=== PATIENT | female | born 1955 | race Caucasian/White ===

== ENCOUNTER 2019-12-29 08:41 | Outpatient (CLI) | payer BC ==
--- NOTE | 2019-12-29 09:36 | CT ---
CT abdomen and pelvis noncontrast HISTORY: Right flank pain. COMPARISON: 12/31/2012. FINDINGS: Lung bases are clear. At the inferior pole of the right kidney is a punctate calcification. Right renal collecting system and ureter are decompressed. Urinary bladder is unremarkable. A small phlebolith is noted within the right lower pelvis outside of the course of the distal right ure ter. Left renal collecting system and ureter are also decompressed. Within a nondilated calyx at the midpo rtion of the left kidney is an oval 0.6 cm calcification. Tiny calcifications, no greater than 0.2 cm, are also present at the superior and inferior poles. Prominent degenerative changes lower lumbar spine including severe left foraminal stenosis at the lum bosacral junction and significant central canal stenosis at the L4-5 level. Lack of contrast limits evaluation of the soft tissues. No evidence of bowel obstruction or inflammat ion. At the inferior pole of the right kidney, a focal exophytic projection inferiorly correlates with a lobulation demonstrated on prior study from 12/31/2012. IMPRESSION : Bilateral ureteral calculi, measuring up to 0.6 cm on the left. No evidence of urinary tract obstruct ion. Perhaps a recently passed stone on the right would account for right flank pain? Degenerative changes lumbar spine including severe left foraminal stenosis at the lumbosacral junctio n. Clinical correlation regarding the left L5 dermatome is required. Other incidental-type findings as detailed above.
== END 2019-12-29 08:42 | disposition home or self-care (01) ==
LOC: CT 08:41
PROVIDERS: ATTEND Obstetrics & Gynecology
DX: R10.9 Unspecified abdominal pain (principal); N20.1 Calculus of ureter; M47.816 Spondylosis without myelopathy or radiculopathy, lumbar region; M48.07 Spinal stenosis, lumbosacral region; N28.89 Other specified disorders of kidney and ureter
CPT/HCPCS: 74176

== ENCOUNTER 2020-06-22 21:49 | Observation (INO) | payer BC ==
[2020-06-22] MEDS ORDERED: Ketorolac Tromethamine 30 MG/ML VIAL ONE (22:32)
[2020-06-22] MEDS ORDERED: Ondansetron PF 4 MG/2 ML Vial ONE (22:32)
[2020-06-22 22:43] LABS: #Eosinphils 0.2 thou/uL (0.0-0.7); #Monocytes 0.5 thou/uL (0.11-0.59); %Basophils 0.4 % (0.0-1.0); %Eosinophils 2.7 % (0.0-10.0); %Lymphocytes 29.9 % (21.0-51.0); %Monocytes 7.6 % (0.0-10.0); %Neutrophils 59.6 % (42.0-75.0); Hemoglobin 13.1 g/dL (12.0-16.0); Mean Corpuscular HGB CONC 33.4 g/dL (32.0-36.0); Mean Corpuscular Hemoglobin 29.8 pg (27.0-31.0); Mean Corpuscular Volume 89.3 fL (78.0-98.0); Mean Platelet Volume 8.2 fL (7.4-10.4); Platelet Count 222 thou/uL (130-400); RBC Distribution Width 11.2 % (11.5-14.5); Red Blood Cell (RBC) Count 4.38 mill/uL (4.20-5.40); White Blood Cell (WBC) Count 6.7 thou/uL (4.8-10.8)
[2020-06-22 23:06] LABS: ALT (SGPT) 14 U/L (8-55); AST (SGOT) 21 U/L (5-34); Albumin 4.2 g/dL (3.4-4.8); Alkaline Phosphatase 71 U/L (40-110); Anion Gap 13 mmol/L (10-20); BUN (Urea Nitrogen) 23 mg/dL (9.8-20.1); Bilirubin, Total 0.2 mg/dL (0.2-1.2); Calc. Creatinine Clearance 0 mL/min (70-130); Calcium 9.6 mg/dL (7.8-10.44); Carbon Dioxide 23 mmol/L (23-31); Chloride 106 mmol/L (98-107); Globulin 2.8 g/dL (2.4-3.5); Glucose 103 mg/dL (80-115); Lipase 50 U/L (8-78); Potassium 3.4 mmol/L (3.5-5.1); Sodium 139 mmol/L (136-145)
[2020-06-22] MEDS ORDERED: HYDROcodone/Acetaminophen 5/325 mg Tablet ONE (23:59)
[2020-06-23] MEDS ORDERED: Ondansetron ODT 4 MG TAB ONE (00:08)
[2020-06-23] MEDS ORDERED: Fentanyl 100 MCG/2 ML VIAL ONE ×3 (00:11→11:13)
[2020-06-23 00:30] LABS: Bacteria/HPF 3+ HPF (None Seen); Bilirubin Negative (Negative); Blood, Urine 2+ (Negative); Clarity Clear (Clear); Glucose, Urine (Dipstick) Normal (Negative); Ketone, Urine Negative (Negative); Leukocyte 250 Leu/uL (Negative); Nitrite Negative (Negative); Protein, Urine (Dipstick) Negative (Neg-Trace); RBC/HPF 0-3 HPF (0-3); Specific Gravity, Urine 1.011 (1.002-1.036); Squamous Epithelial 0-3 HPF (0-3); Urobilinogen Normal mg/dL (Less than 2); WBC/HPF Greater than 50 HPF (0-3); pH, Urine 6.5 (5.0-9.0)
[2020-06-23] MEDS ORDERED: Acetaminophen 500 MG TAB ONE (01:40)
[2020-06-23] MEDS ORDERED: Levofloxacin 500 mg/D5W 100 ml Premix Bag ONE (02:29)
[2020-06-23] MEDS ORDERED: Morphine 4 MG/ML VIAL ONE ×2 (02:40→04:27)
[2020-06-23] MEDS ORDERED: Ondansetron PF 4 MG/2 ML Vial ONE ×3 (02:42→09:50)
[2020-06-23] MEDS ORDERED: Vancomycin 1 GM/200 ML BAG ONE (03:45)
[2020-06-23 07:31] LABS: SARS-CoV-2 NAA Rapid Test Not Detected (NotDetected)
[2020-06-23 07:33] LABS: Bilirubin Negative (Negative); Blood, Urine Trace (Negative); Clarity Clear (Clear); Glucose, Urine (Dipstick) Normal (Negative); Ketone, Urine 10 mg/dL (Negative); Leukocyte 250 Leu/uL (Negative); Nitrite Negative (Negative); Protein, Urine (Dipstick) Negative (Neg-Trace); RBC/HPF 0-3 HPF (0-3); Squamous Epithelial None Seen HPF (0-3); Urobilinogen Normal mg/dL (Less than 2); pH, Urine 6.5 (5.0-9.0)
[2020-06-23 07:34] LABS: Bacteria/HPF 1+ HPF (None Seen)
[2020-06-23] MEDS ORDERED: Ondansetron PF 4 MG/2 ML Vial IVP SCH (08:15)
[2020-06-23] MEDS ORDERED: Lidocaine 1% PF 5 ML VIAL ONE (09:50)
[2020-06-23] MEDS ORDERED: Ketorolac Tromethamine 30 MG/ML VIAL ONE (09:50)
[2020-06-23] MEDS ORDERED: PROPOFOL 200 MG/20 ML VIAL ONE (09:50)
[2020-06-23] MEDS ORDERED: Dexamethasone 20 MG/5 ML VIAL ONE (09:50)
[2020-06-23] MEDS ORDERED: Succinylcholine 200 MG/10 ml SYRINGE FS ONE (09:50)
[2020-06-23] MEDS ORDERED: PHENYLEPHRINE-NS 100 MCG/ML 10 ML SYRINGE ONE (09:50)
[2020-06-23] MEDS ORDERED: Promethazine HCl 25 MG/ML VIAL SLOW IVP PRN (10:11)
[2020-06-23] MEDS ORDERED: Promethazine HCl 25 MG/ML VIAL IM PRN (10:11)
[2020-06-23] MEDS ORDERED: HYDROmorphone 2 MG/ML VIAL SLOW IVP PRN (10:11)
[2020-06-23] MEDS ORDERED: Ondansetron HCl/PF 4 MG/2 ML Vial IVP PRN (10:11)
[2020-06-23] MEDS ORDERED: Meperidine HCl/PF 25 MG/ML VIAL SLOW IVP PRN (10:11)
[2020-06-23] MEDS ORDERED: Phenazopyridine HCl 100 MG TAB PO PRN (10:19)
[2020-06-23] MEDS ORDERED: diphenhydrAMINE 50 MG/ML VIAL IVP PRN (10:19)
[2020-06-23] MEDS ORDERED: Acetaminophen 500 MG TAB PO PRN (10:19)
[2020-06-23] MEDS ORDERED: Oxybutynin 5 MG TAB PO PRN (10:19)
[2020-06-23] MEDS ORDERED: hydrALAZINE 20 MG/ML VIAL SLOW IVP PRN ×2 (10:19)
[2020-06-23] MEDS ORDERED: HYDROcodone/Acetaminophen 5/325 mg Tablet PO PRN ×2 (10:19)
[2020-06-23] MEDS ORDERED: Zolpidem Tartrate 5 MG TAB PO PRN (10:19)
[2020-06-23] MEDS ORDERED: Ketorolac Tromethamine 30 MG/ML VIAL IM PRN (10:19)
[2020-06-23] MEDS ORDERED: Ondansetron PF 4 MG/2 ML Vial IVP PRN (10:19)
[2020-06-23] MEDS ORDERED: Iothalamate Meglumine 60% 50 ML VIAL FS ONE (10:24)
[2020-06-23] MEDS ORDERED: Promethazine HCl 25 MG/ML VIAL ONE (11:13)
[2020-06-23] MEDS: Sodium Chloride 0.9% 1,000 ML IV SCH ×2 (15:44→17:57)
[2020-06-23 15:49] VITALS: BMI 22.6
[2020-06-23] MEDS: Famotidine/PF 20 mg/2ml Vial SLOW IVP SCH (19:50)
[2020-06-23] MEDS: Docusate 100 MG CAP PO SCH (19:50)
[2020-06-24] MEDS: Sodium Chloride 0.9% 1,000 ML IV SCH ×2 (06:37→10:30)
[2020-06-24] MEDS: Docusate 100 MG CAP PO SCH (08:03)
[2020-06-24] MEDS: Famotidine/PF 20 mg/2ml Vial SLOW IVP SCH (08:04)
[2020-06-24 08:09] LABS: #Lymphocytes 0.8 thou/uL (1.20-3.40); #Monocytes 0.5 thou/uL (0.11-0.59); #Neutrophils 6.4 thou/uL (1.40-6.50); %Basophils 0.1 % (0.0-1.0); %Eosinophils 0.1 % (0.0-10.0); %Lymphocytes 10.6 % (21.0-51.0); %Monocytes 6.5 % (0.0-10.0); %Neutrophils 82.7 % (42.0-75.0); Mean Corpuscular HGB CONC 33.6 g/dL (32.0-36.0); Mean Corpuscular Hemoglobin 30.5 pg (27.0-31.0); Mean Platelet Volume 8.5 fL (7.4-10.4); Platelet Count 154 thou/uL (130-400); RBC Distribution Width 11.3 % (11.5-14.5); Red Blood Cell (RBC) Count 3.62 mill/uL (4.20-5.40); White Blood Cell (WBC) Count 7.7 thou/uL (4.8-10.8)
[2020-06-24 08:28] LABS: Anion Gap 10 mmol/L (10-20); BUN (Urea Nitrogen) 18 mg/dL (9.8-20.1); Calc. Creatinine Clearance 58 mL/min (70-130); Calcium 8.5 mg/dL (7.8-10.44); Carbon Dioxide 24 mmol/L (23-31); Chloride 110 mmol/L (98-107); Glucose 107 mg/dL (80-115); Potassium 3.6 mmol/L (3.5-5.1); Sodium 140 mmol/L (136-145)
[2020-06-24 09:36] LABS: Bilirubin Negative (Negative); Blood, Urine 3+ (Negative); Clarity Turbid (Clear); Glucose, Urine (Dipstick) Normal (Negative); Ketone, Urine Negative (Negative); Leukocyte 250 Leu/uL (Negative); Nitrite Negative (Negative); Protein, Urine (Dipstick) 100 mg/dL (Neg-Trace); RBC/HPF Greater than 50 HPF (0-3); Specific Gravity, Urine 1.022 (1.002-1.036); Squamous Epithelial 0-3 HPF (0-3); Urobilinogen Normal mg/dL (Less than 2); WBC/HPF Greater than 50 HPF (0-3)
[2020-06-24 09:37] LABS: Bacteria/HPF 1+ HPF (None Seen)
[2020-06-24 11:00] LABS: PTT 25.7 sec (22.9-36.1); Prothrombin Time 13.2 sec (12.0-14.7)
[2020-06-24 12:24] VITALS: BP 128/76; TEMP 98.4
== END 2020-06-24 12:20 | disposition home or self-care (01) ==
LOC: ERS 21:49 → ERHOLD 06-23 02:30 → SJJU 06-23 15:35
PROVIDERS: ADMIT Urology; ATTEND Urology
PROC: 0T778DZ Dilation of Left Ureter with Intraluminal Device, Via Natural or Artificial Opening Endoscopic (ICD-10-PCS; principal; 2020-06-23)
DX: N13.6 Pyonephrosis (principal); B96.4 Proteus (mirabilis) (morganii) as the cause of diseases classified elsewhere; K57.30 Diverticulosis of large intestine without perforation or abscess without bleeding; Z88.0 Allergy status to penicillin; Z88.2 Allergy status to sulfonamides; Z88.5 Allergy status to narcotic agent; Z20.822 Contact with and (suspected) exposure to COVID-19
CPT/HCPCS: 36415; 74176; 74420; 80048; 80053; 81001; 81003; 81015; 83690; 85025; 85610; 85730; 87077; 87086; 87186; 96365; 96374; 96375; 96376; G0378; J1100; J1885; J1956; J2270; J2405; J2550; J2704; J3010; J3370; Q0162; Q9961; S0028; U0002

== ENCOUNTER 2020-06-30 06:40 | Day surgery (SDC) | payer BC ==
[2020-06-29 14:38] VITALS: BMI 23.6
[2020-06-30] MEDS ORDERED: Levofloxacin 500 mg/D5W 100 ml Premix Bag ONE (07:33)
[2020-06-30] MEDS ORDERED: Metoclopramide HCl 10 MG/2 ML VIAL ONE ×2 (08:13→08:22)
[2020-06-30] MEDS ORDERED: Fentanyl 100 MCG/2 ML VIAL ONE ×2 (08:13)
[2020-06-30] MEDS ORDERED: Ondansetron PF 4 MG/2 ML Vial ONE ×2 (08:13→08:22)
[2020-06-30] MEDS ORDERED: Famotidine/PF 20 mg/2ml Vial ONE (08:13)
[2020-06-30] MEDS ORDERED: Rocuronium Bromide 10 MG/ML (10ML VIAL) ONE (08:22)
[2020-06-30] MEDS ORDERED: Lidocaine 1% PF 5 ML VIAL ONE (08:22)
[2020-06-30] MEDS ORDERED: PROPOFOL 200 MG/20 ML VIAL ONE (08:22)
[2020-06-30] MEDS ORDERED: Iothalamate Meglumine 60% 50 ML VIAL FS ONE (08:24)
[2020-06-30] MEDS ORDERED: Midazolam HCl 2 mg/2 ml Vial ONE (08:24)
[2020-06-30] MEDS ORDERED: Naloxone HCl 0.4 mg/ml Vial ONE (09:05)
[2020-06-30] MEDS ORDERED: SUGAMMADEX SODIUM 500 MG/5 ML VIAL ONE (09:12)
[2020-06-30] MEDS ORDERED: Oxybutynin 5 MG TAB ONE (09:21)
[2020-06-30] MEDS ORDERED: Phenazopyridine HCl 100 MG TAB ONE (09:22)
[2020-06-30] MEDS ORDERED: traMADol HCl 50 MG TAB ONE (09:56)
[2020-06-30] MEDS ORDERED: Ketorolac Tromethamine 30 MG/ML VIAL ONE (10:31)
[2020-07-06 18:39] LABS: CA Oxalate Monohydrate 10 % (.); Color White (.); Mg Ammon Phos 50 % (.); Stone Weight 26 mg (.)
== END 2020-06-30 11:10 | disposition home or self-care (01) ==
LOC: SDC 06:40
PROVIDERS: ATTEND Urology
PROC: 0T778DZ Dilation of Left Ureter with Intraluminal Device, Via Natural or Artificial Opening Endoscopic (ICD-10-PCS; principal; 2020-06-30)
PROC: 0TC78ZZ Extirpation of Matter from Left Ureter, Via Natural or Artificial Opening Endoscopic (ICD-10-PCS; principal; 2020-06-30)
DX: N20.2 Calculus of kidney with calculus of ureter (principal); Z79.899 Other long term (current) drug therapy; Z88.0 Allergy status to penicillin; Z88.2 Allergy status to sulfonamides; Z88.5 Allergy status to narcotic agent
CPT/HCPCS: 74018; 74420; 82365; 88300; 93005; 93010; J1885; J1956; J2250; J2310; J2405; J2704; J2765; J3010; Q9961; S0028

== ENCOUNTER 2021-07-05 15:08 | Outpatient (CLI) | payer BC | END 2021-07-05 15:09 | disposition home or self-care (01) | LOC: BICMAMMO 15:08 | PROVIDERS: ATTEND Family Medicine | DX: Z12.31 Encounter for screening mammogram for malignant neoplasm of breast (principal) | CPT/HCPCS: 77063; 77067 ==